=== PATIENT | female | born 1995 | race Caucasian/White ===

== ENCOUNTER 2017-01-27 19:17 | Emergency (ER) | payer OTHER ==
[~2017-01-27] VITALS: Ht 162.6 cm; Wt 95.3 kg
[~2017-01-27 19:17] MED LIST: CIPR500T94 PO; TRAM50TA PO
[2017-01-27] MEDS ORDERED: ORPHENADRINE CITRATE 60 MG/2 ML VIAL. IM ONE (21:15)
[2017-01-27] MEDS ORDERED: KETOROLAC 60 MG/2 ML VIAL. IM ONE (21:15)
[2017-01-27 21:34] VITALS: BP 132/82
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
== END 2017-01-27 22:35 | disposition home or self-care (01) ==
LOC: ER 19:17
DX: M54.5 Low back pain (principal); J45.909 Unspecified asthma, uncomplicated; Z88.8 Allergy status to other drugs, medicaments and biological substances; V43.92XA Unspecified car occupant injured in collision with other type car in traffic accident, initial encounter; Y93.89 Activity, other specified; Y99.8 Other external cause status; Y92.89 Other specified places as the place of occurrence of the external cause
CPT/HCPCS: 81025; 96372; 99284; J1885; J2360

== ENCOUNTER 2017-07-21 18:32 | Emergency (ER) | payer OTHER ==
[~2017-07-21] VITALS: Ht 162.6 cm; Wt 105.2 kg
[2017-07-21] MEDS ORDERED: FAMOTIDINE 20 MG/2 ML VIAL IVP ONE (20:15)
[2017-07-21] MEDS ORDERED: diphenhydrAMINE 50 MG/ML VIAL IVP ONE (20:15)
[2017-07-21] MEDS ORDERED: methylPREDNISolone SOD SUCC PF 125 MG/2 ML VIAL. IV ONE (20:15)
--- NOTE | 2017-07-21 20:54 | ED.ADGEN ---
Past History Past Medical History: No Pertinent History, Asthma, Other Past Surgical History: Tonsillectomy Smoking: Non-smoker Alcohol Use: None Drug Use: None Adult General HPI HPI Patient is a 22 y/o female who accidentally ate nuts in a whip topping on a dessert about 4pm. she had some nausea. she has n/v/d reaction to peanuts. she did not take anything [employer]. she has had no oral involvement or skin rash. no wheezing or SOA. Review of Systems Review of Systems Constitutional: Denies fever or chills [] Eyes: Denies change in visual acuity, redness, or eye pain [] HENT: Denies nasal congestion or sore throat [] Respiratory: Denies cough or shortness of breath [] Cardiovascular: No additional information not addressed in HPI [] GI: Denies abdominal pain,+ nausea, no vomiting, bloody stools or diarrhea [] : Denies dysuria or hematuria [] Musculoskeletal: Denies back pain or joint pain [] Integument: Denies rash or skin lesions [] Neurologic: Denies headache, focal weakness or sensory changes [] Endocrine: Denies polyuria or polydipsia [] All other systems were reviewed and found to be within normal limits, except as documented in this note. Current Medications Current Medications Current Medications Medications (Trade) Dose Ordered Sig/Bj Start Time Stop Time Status Last Admin Dose Admin Diphenhydramine HCl (Benadryl) 25 mg 1X ONCE 07/21/17 20:15 07/21/17 20:16 DC 07/21/17 20:11 25 MG Famotidine (Pepcid Vial) 20 mg 1X ONCE 07/21/17 20:15 07/21/17 20:16 DC 07/21/17 20:10 20 MG Methylprednisolone Sodium Succinate (SOLU-Medrol 125MG VIAL) 125 mg 1X ONCE 07/21/17 20:15 07/21/17 20:16 DC 07/21/17 20:10 125 MG Allergies Allergies Allergies Coded Allergies Type Severity Reaction Last Updated Verified cefazolin Allergy Unknown 07/05/13 Yes Uncoded Allergies Type Severity Reaction Last Updated Verified CASHEW Allergy Intermediate 08/02/13 PINE NUTS Allergy Intermediate 08/02/13 Physical Exam Physical Exam Constitutional: Well developed, well nourished, no acute distress, non-toxic appearance. [] HENT: Normocephalic, atraumatic, bilateral external ears normal, oropharynx moist, no oral exudates, nose normal. no oral swelling of tongue or posterior structures Eyes: PERRLA, EOMI, conjunctiva normal, no discharge. [] Neck: Normal range of motion, no tenderness, supple, no stridor. [] Cardiovascular:Heart rate regular rhythm, no murmur [] Lungs & Thorax: Bilateral breath sounds clear to auscultation [] Abdomen: Bowel sounds normal, soft, no tenderness, no masses, no pulsatile masses. [] Skin: Warm, dry, no erythema, no rash. [] Back: No tenderness, no CVA tenderness. [] Extremities: No tenderness, no cyanosis, no clubbing, ROM intact, no edema. [] Neurologic: Alert and oriented X 3, normal motor function, normal sensory function, no focal deficits noted. [] Psychologic: Affect normal, judgement normal, mood normal. [] Current Patient Data Vital Signs Vital Signs Date Time Temp Pulse Resp B/P (MAP) Pulse Ox O2 Delivery O2 Flow Rate FiO2 07/21/17 18:32 98.3 100 98 Room Air EKG EKG [] Radiology/Procedures Radiology/Procedures [] Course & Med Decision Making Course & Med Decision Making Pertinent Labs and Imaging studies reviewed. (See chart for details) pt feels better after meds. no other sx have developed. we discussed intraoral sx, dyspnea, coughing, wheezing to return immediately. she will continue benadryl and prednisone at home [] Final Impression Final Impression allergic reaction[] Problems: Dragon Disclaimer Dragon Disclaimer This electronic medical record was generated, in whole or in part, using a voice recognition dictation system. Departure Time of Disposition: 20:52 Disposition: 01 HOME, SELF-CARE Condition: STABLE Patient Instructions: Allergies, Generic Additional Instructions: return if rash, tongue/lip/throat swelling or any other concerns. benadryl 25mg every 6 hours for 24 hours. start prednisone for 3 days tomorrow if still having symptoms Prescriptions prednisone DAVID MORAN MD Jul 21, 2017 20:53
[2017-07-21] MEDS ORDERED: PRED50TA PO (20:55)
[2017-07-21 21:35] VITALS: BP 137/79
== END 2017-07-21 21:35 | disposition home or self-care (01) ==
LOC: ER 18:32
DX: T78.1XXA Other adverse food reactions, not elsewhere classified, initial encounter (principal); J45.909 Unspecified asthma, uncomplicated; Z88.1 Allergy status to other antibiotic agents; X58.XXXA Exposure to other specified factors, initial encounter
CPT/HCPCS: 96374; 96375; 99284; J1200; J2930; S0028

== ENCOUNTER 2019-06-13 19:48 | Emergency (ER) | payer OTHER ==
[~2019-06-13] VITALS: Ht 162.6 cm; Wt 100.0 kg
[~2019-06-13 19:48] MED LIST changes: +PRED50TA PO
[2019-06-13 19:50] VITALS: BP 131/89
--- NOTE | 2019-06-13 20:08 | PHYS DOC ---
Past History Past Medical History: No Pertinent History, Asthma, Other Past Surgical History: Tonsillectomy Smoking: Non-smoker Alcohol Use: None Drug Use: None Adult General Chief Complaint Chief Complaint: UPPER EXTREMITY INJURY.." I work at [employer].. and the door magnet.. or security lock fell off and hit my Rt. hand and wrist... " HPI HPI Patient is a 24 year old female who presents with above hxc and complaints of injury to right wrist and hand when the security magnet fell on the door. Patient works at [employer]. Injury occurred approximately 1730 hrs. Patient is right-hand dominant. Distal neuro vascular is equal to left hand. Does have obvious redness and edema to right wrist and hand. Movement of hand and wrist causes pain. Pt. follows with primary Dr. Gurrola. Review of Systems Review of Systems Constitutional: Denies fever or chills [] Eyes: Denies change in visual acuity, redness, or eye pain [] HENT: Denies nasal congestion or sore throat [] Respiratory: Denies cough or shortness of breath [] Cardiovascular: No additional information not addressed in HPI [] GI: Denies abdominal pain, nausea, vomiting, bloody stools or diarrhea [] : Denies dysuria or hematuria [] Musculoskeletal: Denies back pain or joint pain . Except complaints of right wrist and hand injury as per history of present illness Integument: Denies rash or skin lesions [] Neurologic: Denies headache, focal weakness or sensory changes [] Endocrine: Denies polyuria or polydipsia [] All other systems were reviewed and found to be within normal limits, except as documented in this note. Family History Family History Noncontributory to presentation Current Medications Current Medications See nursing for home meds Allergies Allergies Allergies Coded Allergies Type Severity Reaction Last Updated Verified cefazolin Allergy Unknown 07/05/13 Yes Uncoded Allergies Type Severity Reaction Last Updated Verified CASHEW Allergy Intermediate 08/02/13 PINE NUTS Allergy Intermediate 08/02/13 Physical Exam Physical Exam Constitutional: Well developed, well nourished, moderate acute distress, non- toxic appearance. [] HENT: Normocephalic, atraumatic, bilateral external ears normal, oropharynx moist, no oral exudates, nose normal. [] Eyes: PERRLA, EOMI, conjunctiva normal, no discharge. [] Neck: Normal range of motion, no tenderness, supple, no stridor. [] Cardiovascular:Heart rate regular rhythm, no murmur [] Lungs & Thorax: Bilateral breath sounds clear to auscultation [] Abdomen: Bowel sounds normal, soft, no tenderness, no masses, no pulsatile masses. [] Skin: Warm, dry, no erythema, no rash. [] Back: No tenderness, no CVA tenderness. [] Extremities: No tenderness, no cyanosis, no clubbing, ROM intact, no edema. [] Except findings in right wrist and hand as per history of present illness Neurologic: Alert and oriented X 3, normal motor function, normal sensory function, no focal deficits noted. [] Psychologic: Affect anxious, judgement normal, mood normal. [] EKG EKG [] Radiology/Procedures Radiology/Procedures [][address] [address] IMAGING REPORT Signed PATIENT: AMRIK CHADWICK ACCOUNT: [id number] : 1995 LOCATION: ER AGE: 24 SEX: F EXAM STATUS: REG ER ORD. PHYSICIAN: BAMBI PRIETO MD REASON: security door magnet fell off and hit hand and wrist PROCEDURE: HAND RIGHT 3V Three-view right hand radiographs 06/13/2019 CLINICAL HISTORY: Magnetic fell from door striking the patient's right hand. PA, lateral and oblique digital radiographs of right hand were obtained. No fracture or dislocation right hand is seen. No radiopaque foreign body is noted. IMPRESSION: No fracture or dislocation right hand is seen. Electronically signed by: Cali Em MD (06/13/2019 10:31 PM) [id number] DICTATED AND SIGNED BY: CALI EM MD DATE: 06/13/19 223 CC: DWAYNE GURROLA MD; BAMBI PRIETO MD ~ Course & Med Decision Making Course & Med Decision Making Pertinent Labs and Imaging studies reviewed. (See chart for details) Keep follow-up workmen comp. Use ice packs as needed. Tylenol and ibuprofen for pain. Wear Clarence wrap. Return if any concerns. Distal neurovascular intact after application of Clarence wrap Impression; 1. Contusion-right hand and wrist [] Dragon Disclaimer Dragon Disclaimer This electronic medical record was generated, in whole or in part, using a voice recognition dictation system. Departure Departure: Disposition: 01 HOME/RESIDENCE PRIOR TO ADM Condition: STABLE Referrals: DWAYNE GURROLA MD (PCP) [place] Disclaimer This chart was dictated in whole or in part using Voice Recognition software in a busy, high-work load, and often noisy Emergency Department environment. It may contain unintended and wholly unrecognized errors or omissions. BAMBI PRIETO MD Jun 13, 2019 20:08
[2019-06-13] MEDS ORDERED: ACETAMINOPHEN 500 MG TABLET PO ONE (20:30)
[2019-06-13 20:32] LABS: BARBITURATES NEG (NEG); BENZODIAZEPINES NEG (NEG); CANNABINOIDS NEG (NEG); COCAINE NEG (NEG); METHADONE NEG (NEG); OPIATES NEG (NEG); PHENCYCLIDINE NEG (NEG)
[2019-06-13 20:34] LABS: AMPHETAMINE/METHAMPHETAMINE NEG (NEG)
[2019-06-13 21:29] LABS: BACTERIA,URINE 0 /HPF (0-FEW); BILIRUBIN,URINE NEG (NEG); CLARITY,URINE CLEAR; COLOR,URINE YELLOW; GLUCOSE,URINE NEG (NEG); NITRITE,URINE NEG (NEG); RBC,URINE OCC /HPF (0-2); SQUAMOUS EPITHELIAL CELL,UR MOD /LPF; UROBILINOGEN,URINE 0.2 mg/dL (0.2 mg/dL); WBC,URINE OCC /HPF (0-4)
--- NOTE | 2019-06-13 22:34 | RAD ---
Three-view right hand radiographs 06/13/2019 CLINICAL HISTORY: Magnetic fell from door striking the patient's right hand. PA, lateral and oblique digital radiographs of right hand were obtained. No fracture or dislocation right hand is seen. No radiopaque foreign body is noted. IMPRESSION: No fracture or dislocation right hand is seen. Electronically signed by: Cali Em MD (06/13/2019 10:31 PM) [id number]
== END 2019-06-13 23:36 | disposition home or self-care (01) ==
LOC: ER 19:48
DX: S60.211A Contusion of right wrist, initial encounter (principal); J45.909 Unspecified asthma, uncomplicated; Z88.1 Allergy status to other antibiotic agents; W20.8XXA Other cause of strike by thrown, projected or falling object, initial encounter; Y93.89 Activity, other specified; Y92.89 Other specified places as the place of occurrence of the external cause; Y99.8 Other external cause status
CPT/HCPCS: 36415; 73130; 80307; 81001; 81025; 99284